=== PATIENT | male | born 1955 | race Caucasian/White ===

== ENCOUNTER 2017-01-03 07:59 | Emergency (ER) | payer OTHER ==
--- NOTE | ~2017-01-03 | ER ---
PATIENT'S NAME: SANDRA MCKINNEY [facility] AGE: 61 Y [address] ROOM: [place] [address] LOCATION: [facility] ADMIT DATE: 01/03/2017 ER/Outpatient Report DISCHARGE DATE: 01/03/2017 FAMILY PHYSICIAN: Ajay Estrada MD ATTENDING PHYSICIAN: Fausto Gaspar Time of Arrival: 0759 hours. Time of evaluation: 0803 hours. CHIEF COMPLAINT: Migraine. HISTORY OF PRESENT ILLNESS: The patient is a 61-year-old male, who presents to the emergency department today with chief complaint of migraine. He reports that this started 30 hours prior to arrival. The patient reports he has headaches daily. He reports that he has migraines like this every few days. He reports some nausea and no vomiting. He reports he has been feeling hot and cold, but no fevers or chills. Does report some photophobia. No diarrhea or constipation. No dizziness. No syncope. It is not the worst headache of his life. No thunderclap. The pain is currently 10/10. PAST MEDICAL HISTORY: 1. Trb-rheqvrc-qrwwvjpaq diabetes. 2. Hypertension. 3. Migraines. PAST SURGICAL HISTORY: Neck surgery x3. SOCIAL HISTORY: The patient denies any tobacco, alcohol, or illicit drug use. ALLERGIES: NO KNOWN DRUG ALLERGIES. MEDICATIONS: 1. Metformin. 2. Clonidine. PRIMARY CARE DOCTOR: Ajay Estrada M.D. REVIEW OF SYSTEMS: All systems are reviewed by myself and negative with the exception of those PATIENT'S NAME: SANDRA MCKINNEY [facility] AGE: 61 Y [address] ROOM: [place] [address] LOCATION: [facility] ADMIT DATE: 01/03/2017 ER/Outpatient Report DISCHARGE DATE: 01/03/2017 FAMILY PHYSICIAN: Ajay Estrada MD ATTENDING PHYSICIAN: Fausto Gaspar discussed in HPI and past medical history. PHYSICAL EXAMINATION: VITAL SIGNS: Weight 85 kg. Blood pressure 206/119, pulse 111, respiratory rate 20, temperature 97, oxygen saturation 99% on room air. GENERAL: The patient is a 61-year-old male, who appears stated age in moderate acute distress secondary to headache HEENT: Head: Normocephalic and atraumatic. Pupils are equal, round, and reactive to light and accommodation. Extraocular motions are intact. Nares are patent bilaterally. TMs are clear. Oropharynx is clear. NECK: Supple. There is no nuchal rigidity. CARDIOVASCULAR: Tachycardic. No murmurs, rubs, or gallops. LUNGS: Clear to auscultation bilaterally. No wheezes, rales, or rhonchi. ABDOMEN: Soft, nontender, and nondistended. No rebound, rigidity, or guarding. MUSCULOSKELETAL: The patient moves all 4 extremities. 5/5 muscle strength NEUROLOGICAL: GCS 15. Alert and oriented x4. Cranial nerves 2 through 12 are grossly intact. Normal hinrrk-cm-hoxo. Equal web specialist strength bilaterally. 2/4 reflexes. SKIN: Warm and dry. There is no rashes or lesions noted. LABORATORY DATA AND X-RAYS: None. IMPRESSION: 1. Cephalgia, suspect migraine type. 2. Initial visit. 3. Elevated blood pressure. ED COURSE: The patient brought back to the examination room. Seen and evaluated by myself. IV is established. The patient is given 10 mg of Compazine and 50 mg of Benadryl IV. He is also given a liter of normal saline and 30 mg of Toradol IV. This has resulted in improvement in patient's symptoms. His blood pressure still does remain elevated and we did give extra dose of the patient's clonidine 0.3 mg p.o. I did discuss the results of the history and physical with the patient. The patient is re-examined. He does feel improved at this time. His blood pressure is improved as well. It is 174/107. I have discussed that I would like him to follow up with Dr. Estrada for re-evaluation of his blood pressures in 2 days. I have discussed evaluation with Dr. Schaefer with Neurology in 2 days for continued headaches as well. The patient does report he has had MRIs of the brain as recently as one year ago. I have discussed return to care instructions including worsening symptoms or any other concerns. Return to PATIENT'S NAME: SANDRA MCKINNEY [facility] AGE: 61 Y [address] ROOM: [place] [address] LOCATION: [facility] ADMIT DATE: 01/03/2017 ER/Outpatient Report DISCHARGE DATE: 01/03/2017 FAMILY PHYSICIAN: Ajay Estrada MD ATTENDING PHYSICIAN: Fausto Gaspar the emergency department as soon as possible. The patient is agreeable and is agreeable. They are without further questions at this time. DISPOSITION: The patient discharged home in good condition. DO ASTER LOGAN/modl /[id number] d: 01/03/17 1441 t: 01/06/17 0641, OUTPATIENT REPORT
== END 2017-01-03 10:01 | disposition disaster alternative care site (69) ==
LOC: GMED 07:59
DX: R51 Headache (principal); I10 Essential (primary) hypertension; E11.9 Type 2 diabetes mellitus without complications; Z79.84 Long term (current) use of oral hypoglycemic drugs; Z79.899 Other long term (current) drug therapy; Z98.890 Other specified postprocedural states
CPT/HCPCS: A9270; J0780; J1200; J1885; J7030

== ENCOUNTER 2017-01-15 14:49 | Emergency (ER) | payer OTHER ==
--- NOTE | ~2017-01-15 | ER ---
PATIENT'S NAME: SANDRA MCKINNEY [facility] AGE: 61 Y [address] ROOM: [place] [address] LOCATION: [facility] ADMIT DATE: 01/15/2017 ER/Outpatient Report DISCHARGE DATE: 01/15/2017 FAMILY PHYSICIAN: Ajay Estrada MD ATTENDING PHYSICIAN: Fausto Gaspar SEEN AT: 1525 hours. CHIEF COMPLAINT: Severe migraine. HISTORY OF PRESENT ILLNESS: The patient is a 61-year-old male, who presents with his complaining of a severe migraine. The patient described it as one of the worst migraines he has ever had. He also states it came on abruptly, however, he has had a headache for the last 4 weeks. The patient has been seeing recently here in the emergency room and also by his family doctor in [place]. The patient has been undergoing some physical therapy to help relieve the migraine. The patient describes it as a throbbing headache. He has experienced photophobia with it, which is not unusual. ALLERGIES: NONE. HOME MEDICATIONS: See his copied list, which was reviewed. MEDICAL HISTORY: Hypertension and history of chronic migraines. SURGERIES: Three cervical surgeries, which included a fusion. SOCIAL HISTORY: He is retired. Denies any alcohol or tobacco use. REVIEW OF SYSTEMS: GENERAL: No fever or chills. HEAD/EENT: Somewhat migraine, quite severe. Has had some associated photophobia with it. RESPIRATORY: Negative. CARDIOVASCULAR: Negative. GASTROINTESTINAL: Nausea, but no vomiting. NEURO/PSYCH: He experienced no numbness or tingling to his extremities. PATIENT'S NAME: SANDRA MCKINNEY [facility] AGE: 61 Y [address] ROOM: [place] [address] LOCATION: [facility] ADMIT DATE: 01/15/2017 ER/Outpatient Report DISCHARGE DATE: 01/15/2017 FAMILY PHYSICIAN: Ajay Estrada MD ATTENDING PHYSICIAN: Fausto Gaspar OBJECTIVE FINDINGS: VITAL SIGNS: He had a blood pressure of 181/100, at discharge it was down to 151/92; his temperature is 97; respiratory rate 20; his initial pulse was 120, and 96 at discharge. GENERAL APPEARANCE: White male, appeared grimacing. Eyes closed. He was oriented x3. HEAD/EENT: There is no temporal tenderness. Pupils grossly are equal. He had no nuchal rigidity. NEURO: His speech was clear. No focal neurological signs were present. LABORATORY DATA AND X-RAYS: CT of his head showed no acute changes or findings. EMERGENCY DEPARTMENT COURSE: He was given Toradol 60 and Phenergan 50 IM and within half hour he was also given Nubain 10. Headache did improve with his IM medications. ASSESSMENT: Severe migraine. PLAN: Treatment. The patient discharged home. Recommended follow up with Dr. Estrada or Dr. Schaefer, which he states has an upcoming appointment. EUSEBIA HERNANDEZ FOR DO LIZZETTE LOGAN/casandral /[id number] d: 01/15/17 2339 t: 01/18/17 1610, OUTPATIENT REPORT
== END 2017-01-15 17:17 | disposition disaster alternative care site (69) ==
LOC: GMED 14:49
DX: G43.909 Migraine, unspecified, not intractable, without status migrainosus (principal); I10 Essential (primary) hypertension; Z98.890 Other specified postprocedural states; Z79.899 Other long term (current) drug therapy
CPT/HCPCS: J1885; J2300; J2550